=== PATIENT | female | born 1965 | race Two or more races ===

== ENCOUNTER 2018-10-13 11:25 | Emergency (ER) | payer SELFPAY ==
[~2018-10-13] VITALS: Ht 160 cm; Wt 82.5 kg
[2018-10-13 11:33] VITALS: BP 149/92
--- NOTE | 2018-10-13 12:57 | NUR ---
Patient/Caregiver given discharge instructions and they have confirmed that they understand the instructions. Patient ambulatory with steady gait.
== END 2018-10-13 12:57 | disposition home or self-care (01) ==
LOC: ED 11:33
DX: H65.01 Acute serous otitis media, right ear (principal); J00 Acute nasopharyngitis [common cold]
CPT/HCPCS: 71046; 99283

== ENCOUNTER 2018-10-16 12:25 | Emergency (ER) | payer SELFPAY ==
[~2018-10-16] VITALS: Ht 160 cm; Wt 82.2 kg
[2018-10-16 12:30] VITALS: BP 144/86
== END 2018-10-16 13:31 | disposition home or self-care (01) ==
LOC: ED 13:17
DX: H92.01 Otalgia, right ear (principal); J02.9 Acute pharyngitis, unspecified
CPT/HCPCS: 87081; 87880; 99283